=== PATIENT | male | born 1960 | race Caucasian/White ===

== ENCOUNTER 2023-12-19 21:26 | Observation (INO) | payer BC ==
[2023-12-19] MEDS ORDERED: Morphine 2 MG/ML VIAL SLOW IVP PRN (21:28)
[2023-12-19] MEDS ORDERED: hydrALAZINE 20 MG/ML VIAL SLOW IVP PRN (21:28)
[2023-12-19] MEDS ORDERED: Promethazine HCl 25 MG/ML VIAL IM PRN (21:28)
[2023-12-19] MEDS ORDERED: Ondansetron PF 4 MG/2 ML Vial IVP PRN (21:28)
[2023-12-19] MEDS ORDERED: Ipratropium/Albuterol 3 ML NEB NEB PRN (21:28)
[2023-12-19 22:49] VITALS: BMI 31.1
[2023-12-19] MEDS: Lactated Ringer's 1,000 ML IV SCH (23:02)
[2023-12-20] MEDS: Piperacillin/Tazobactam 3.375 GM in Sodium Chloride 0.9% 100 ML IVPB SCH (01:22)
[2023-12-20] MEDS: Morphine 4 MG/ML VIAL SLOW IVP PRN (01:22)
[2023-12-20 04:07] LABS: #Basophils 0.02 10x3/uL (0.0-0.2); #Eosinphils 0.06 10x3/uL (0.0-0.5); #Monocytes 0.71 10x3/uL (0.0-1.1); #Neutrophils 3.91 10x3/uL (1.5-8.4); %Basophils 0.4 % (0.0-2.0); %Eosinophils 1.1 % (0.0-6.0); %Lymphocytes 15.3 % (18.0-47.0); %Monocytes 12.7 % (0.0-10.0); %Neutrophils 70.1 % (40.0-75.0); Hematocrit 40.2 % (38.8-50.0); Hemoglobin 13.4 g/dL (13.5-17.5); Mean Corpuscular HGB CONC 33.3 g/dL (32.0-36.0); Mean Corpuscular Hemoglobin 31.3 pg (27.0-33.0); Mean Corpuscular Volume 93.9 fL (81.2-95.1); Mean Platelet Volume 10.2 fL (7.4-10.4); Platelet Count 175 10x3/uL (150-450); RBC Distribution Width 13.2 % (11.5-14.5); Red Blood Cell (RBC) Count 4.28 10x6/uL (4.32-5.72); White Blood Cell (WBC) Count 5.6 10x3/uL (3.5-10.5)
[2023-12-20] MEDS ORDERED: Bupivacaine HCl 0.5%/Epinephrine 1:200,000/PF 30 ml Vial ONE (06:49)
[2023-12-20] MEDS: Famotidine/PF 20 mg/2ml Vial SLOW IVP SCH (10:27)
[2023-12-20 12:02] VITALS: BP 125/72; TEMP 98
== END 2023-12-20 13:03 | disposition home or self-care (01) ==
LOC: UNDOADMOB 21:26 → CSHTELE 21:26
PROVIDERS: ADMIT Surgery; ATTEND Surgery
PROC: 0DTJ4ZZ Resection of Appendix, Percutaneous Endoscopic Approach (ICD-10-PCS; principal; 2023-12-20)
DX: K35.80 Unspecified acute appendicitis (principal); Z79.82 Long term (current) use of aspirin; Z79.899 Other long term (current) drug therapy
CPT/HCPCS: 36415; 85025; 88304; 93005; 93010; 96374; 96375; A4649; G0378; J2272; J2543; J3490; J7120